=== PATIENT | male | born 1990 | race Two or more races ===

== ENCOUNTER 2022-05-12 10:07 | Emergency (ER) | payer OTHER ==
[2022-05-12 10:25] VITALS: BP 136/76; PULSE 71; RESP 16; TEMP 98; BMI 26.5
[2022-05-12] MEDS ORDERED: KETOROLAC TROMETHAMINE 30 MG/1 ML VIAL IM ONE (10:51)
[2022-05-12] MEDS ORDERED: METHOCARBAMOL 500 MG TABLET PO ONE (10:51)
[2022-05-12] MEDS ORDERED: METHOCARBAMOL 500 MG TABLET ONE (11:01)
[2022-05-12] MEDS ORDERED: KETOROLAC TROMETHAMINE 30 MG/1 ML VIAL ONE (11:02)
== END 2022-05-12 11:14 | disposition home or self-care (01) ==
LOC: JER 10:07
PROC: 3E0233Z Introduction of Anti-inflammatory into Muscle, Percutaneous Approach (ICD-10-PCS; principal; 2022-05-12)
DX: M54.40 Lumbago with sciatica, unspecified side (principal)
CPT/HCPCS: 96372; 99283-25